=== PATIENT | female | born 1990 | race Caucasian/White ===

== ENCOUNTER 2021-08-10 12:26 | Emergency (ER) | payer SELFPAY ==
--- NOTE | ~2021-08-10 | US_ITS ---
EXAMINATION: LIMITED OB ULTRASOUND CLINICAL INFORMATION: 21 weeks . Abdominal pain. COMPARISON: None TECHNIQUE: Transabdominal limited second trimester OB ultrasound FINDINGS: There is a single viable intrauterine fetus. From today's measurements, gestational age is estimated at 21 weeks 2 days with estimated date of delivery of 12/19/2021. This agrees with dates from outside exam. measurements are concordant. BPD measures 4.9 cm suggesting gestational age 21 weeks 0 days. OFD measures 7.1 cm suggesting gestational age 22 weeks 6 days. Head circumference measures 19.4 cm suggesting gestational age 21 weeks 5 days. Abdominal circumference measures 15.9 cm suggesting gestational age 21 weeks 1 day. Femur length measures 3.5 cm suggesting gestational age 21 weeks 1 day. weight is estimated at 14 ounces or 3 9 9 g which is 28th percentile for patient's gestational age based on prior outside ultrasound. heart rate is 149 bpm. There is an anterior fundal placenta. There is a 7.3 x 1.4 x 4 cm hypoechoic area in the placenta near the umbilical cord insertion. This probably represents a venous vigil. It is difficult to clearly exclude placental hematoma. The placenta is otherwise normal appearing. There is a complex cystic area seen in the umbilical cord near the placental cord insertion. This measures 5.4 x 3.6 x 4.8 cm. Umbilical cord cysts can be associated with anomalies and dedicated level 2 survey is recommended. The cervical length measures 3.1 cm. The 2.3 x 3.5 x 1.4 cm. There is a 1.8 x 1.1 x 1.3 cm right ovarian cyst. The left ovary is normal-appearing and measures 2.8 x 1.6 x 2.2 cm. There is no fluid in the maternal pelvis. US/US OB limited IMPRESSION: Single viable intrauterine fetus. From today's measurements, weight is estimated at 14 ounces which is 28th percentile for patient's gestational age based on outside exam. 5.4 x 3.6 x 4.8 cm complex cyst in the umbilical cord near the umbilical cord insertion. Umbilical cysts can be associated with anomalies and dedicated level 2 survey is recommended. 7.3 x 1.4 x 4 cm hypoechoic area in the placenta near the umbilical cord insertion. This probably represents a venous vigil. It is difficult to exclude a placental hematoma with certainty and attention on follow-up exam recommended.
[2021-08-10 12:42] VITALS: BP 92/56; PULSE 83; RESP 17; TEMP 36.9; O2SAT 99; BMI 24.1
--- NOTE | 2021-08-10 13:25 | PC.NURSE ---
Pt states that she is 21 weeks with partially detached placenta. [place] felt that she was experiencing high levels of stress and had not felt the baby moving for a few weeks. She states that she did however feel the baby move yesterday but not today. She also mentions that she feels that her belly has stopped growing. She is not having any pain or vaginal bleeding at this time. She believes that she is rH negative.
--- NOTE | 2021-08-10 13:42 | ED.GENADULT ---
HPI - General Adult General Chief complaint: General Medical Stated complaint: ultra sound needed Time Seen by Provider: 08/10/21 13:06 Source: patient Mode of arrival: ambulatory Limitations: no limitations History of Present Illness HPI narrative: Patient presents ED for ultrasound. Patient is from [place]. States in [place] she had ultrasound and this showed that her placenta was detached from the fetus. Patient has not felt strong movement from the fetus recently. Patient denies any vaginal bleeding. Patient denies any abdominal pain. Related Data Allergies Allergy/AdvReac Type Severity Reaction Status Date / Time No Known Allergies Allergy Verified 08/10/21 12:41 Review of Systems Review of Systems: Yes all other systems are reviewed and are negative Constitutional: Constitutional: Reports as per HPI and Reports no additional constitutional complaints Eyes: Eyes: Reports as per HPI and Reports no additional eye complaints ENT: Reports system reviewed and no additional complaints, except as documented and Reports as per HPI Cardiovascular: Cardiovascular: Reports as per HPI and Reports no additional cardiovascular complaints Respiratory: Respiratory: Reports as per HPI and Reports no additional respiratory complaints Gastrointestinal: Gastrointestinal: Reports as per HPI, Reports no additional gastrointestinal complaints and Reports GI cramping Genitourinary: Genitourinary: Reports no additional female genitourinary complaints and Reports as per HPI Musculoskeletal: Musculoskeletal: Reports no additional musculoskeletal complaints and Reports as per HPI Neurologic: Reports system reviewed and no additional complaints, except as documented and Reports as per HPI Psychiatric: Psychiatric: Reports no additional psychiatric complaints and Reports as per HPI [facility] Past Medical History Medical History (Updated 08/10/21 @ 16:52 by DEQUAN Jerry) Hypotension Physical Exam Vital Signs: Vital Signs: Last Vital Signs Temp 98.7 F 08/10/21 14:17 Pulse 81 08/10/21 16:21 Resp 16 08/10/21 16:21 BP 93/54 L 08/10/21 16:21 Pulse Ox 100 08/10/21 14:17 Body Mass Index 24.1 Const: General: cooperative, healthy appearing, comfortable, no acute distress, well developed, alert, awake and Physically active Orientation/consciousness: patient oriented x3 HENMT: Head: Yes normal to inspection, Yes No palpable skull fracture present, Yes normocephalic, Yes atraumatic and No abrasion Eyes: General: appearance normal, both eyes and all related structures Neck: Neck: Yes normal visual inspection, Yes full ROM, Yes no lymphadenopathy, Yes no meningeal signs, Yes trachea midline, Yes supple and No tender Chest: Chest palpation & inspection: normal inspection of the chest and normal palpation of entire chest wall Resp: Effort & Inspection: normal respiratory effort and able to speak in complete sentences Auscultation: clear to auscultation bilaterally Cardio: Jugular venous distension: no JVD Heart sounds: S1 normal heart sound present and S2 normal heart sound present GI: Other: Patient refused pelvic exam. Inspection: Yes normal to inspection and No abdominal wall ecchymosis Palpation (GI): Soft to palpation, not firm, nontender, no guarding and not rigid : General: No CVA tenderness and Yes no CVA tenderness Back/Spine/Pelvis: Back: no CVA tenderness, No CVA tenderness and No back tenderness Skin: General skin exam: no rashes or lesions noted and elasticity normal Neuro: General: patient oriented x3, gait normal, no meningeal signs and CN's II-XI intact bilaterally Cranial nerves: Yes CN's II-XII intact bilaterally Extrem: General: Yes normal to inspection and Yes full ROM Psych: Appearance: grossly normal, well kempt and not disheveled Course Course Course Narrative: Patient will have labs drawn and sent for ultrasound. Reevaluation(s) Reevaluation #1: Patient presently not in any distress. Patient no longer wants to wait in the ER on like to be discharged. Waiting to hear from Dr. Michael hoyosBarbara Gainesyumiko and her friend preferred to be called with Dr. Michael Rivera on their cell phone Time: 16:48 Reevaluation #2: I spoke with Dr. Michael Melendez full states patient should go to [facility] limitedly be triaged for further evaluation and monitoring. I went to bedside and informed patient and her freidn before they recieved discarhged paper of this recommendation. Patient's friend states she she knows of [facility] labor triage and will bring patient immediately. they will drive immediately to [facility] after leaving this ER to [facility] W2 to [facility] labor and delivery triage. They were given copy of blood work and ultrasound. Patient and friend was given copy of blood work and images to give to [facility]. Patient Rh type negative and is aware of that and cynthia 2 babies. Patient believed to received rhogham in [place]. Time: 17:13 Medical Decision Making Lab Data Result diagrams: 08/10/21 14:17 08/10/21 14:17 Labs: Lab Results 08/10/21 08/10/21 08/10/21 Range/Units 14:17 14:17 14:17 WBC 8.7 (4.8-10.8) X10*3/uL RBC 3.27 L (4.20-5.50) X10*6/uL Hgb 10.5 L (12.0-16.0) g/dl Hct 30.0 L (37-47) % MCV 91.7 (80-98) fL MCH 32.1 (27.0-33.0) pg MCHC 35.0 (31.0-35.0) g/dl RDW 13.2 (11.0-16.0) % Plt Count 234 (160-400) X10*3/uL MPV 10.3 (9.4-12.3) fL Immature Gran % (Auto) 0.6 H (0.0-0.4) % Neut % (Auto) 63.3 (45-73) % Lymph % (Auto) 24.5 (20-40) % [place] % (Auto) 7.3 (2-11) % Eos % (Auto) 3.8 (0-4) % Baso % (Auto) 0.5 (0-2) % Lymph # (Auto) 2.1 (1.2-4.9) X10*3/uL [place] # (Auto) 0.6 (0.1-1.2) X10*3/uL Eos # (Auto) 0.3 (0.0-0.4) X10*3/uL Baso # (Auto) 0.0 (0.0-0.2) X10*3/uL Abs Immat Gran (auto) 0.05 H (0.00-0.03) X10*3/uL Absolute Neuts (auto) 5.5 (2.0-8.3) X10*3/uL Absolute Nucleated RBC 0.000 (0.0-0.012) X10*3/uL Nucleated RBC % (auto) 0.0 (0.0-0.2) /100WBC PT 10.2 (9.9-13.0) SEC INR 0.9 (0.9-1.1) APTT 24.1 (24.1-38.0) SEC Sodium 137 (135-145) mmol/L Potassium 4.2 (3.3-5.1) mmol/L Chloride 106 (96-108) mmol/L Carbon Dioxide 25 (22-29) mmol/L Anion Gap 10 L (12-20) BUN 6 L (9-16) mg/dL Creatinine 0.55 (0.5-1.4) mg/dL Estim Creat Clear Calc 127.4 Estimated GFR > 60 Random Glucose 82 (60-115) mg/dL Calcium 8.6 (8.4-10.2) mg/dL Total Bilirubin 0.4 (0.0-1.0) mg/dL Direct Bilirubin (0.0-0.5) mg/dL AST 17 (5-31) U/L ALT 14 (0-31) U/L Alkaline Phosphatase 52 (39-117) U/L Total Protein 6.7 (6.5-8.0) g/dL Albumin 3.7 (3.5-5.0) g/dL Beta HCG, Quant 41522 mIU/mL Urine Color Urine Appearance Urine pH (5.0-8.0) Ur Specific [place] (1.005-1.025) Urine Protein (NEG-TRACE) MG/DL Urine Glucose (UA) (NEG) MG/DL Urine Ketones (NEG) MG/DL Urine Blood (NEG) Urine Nitrite (NEG) Ur Leukocyte Esterase (NEG) Urine Test (NEGATIVE) Blood Type 08/10/21 08/10/21 08/10/21 Range/Units 14:17 14:17 15:11 WBC (4.8-10.8) X10*3/uL RBC (4.20-5.50) X10*6/uL Hgb (12.0-16.0) g/dl Hct (37-47) % MCV (80-98) fL MCH (27.0-33.0) pg MCHC (31.0-35.0) g/dl RDW (11.0-16.0) % Plt Count (160-400) X10*3/uL MPV (9.4-12.3) fL Immature Gran % (Auto) (0.0-0.4) % Neut % (Auto) (45-73) % Lymph % (Auto) (20-40) % [place] % (Auto) (2-11) % Eos % (Auto) (0-4) % Baso % (Auto) (0-2) % Lymph # (Auto) (1.2-4.9) X10*3/uL [place] # (Auto) (0.1-1.2) X10*3/uL Eos # (Auto) (0.0-0.4) X10*3/uL Baso # (Auto) (0.0-0.2) X10*3/uL Abs Immat Gran (auto) (0.00-0.03) X10*3/uL Absolute Neuts (auto) (2.0-8.3) X10*3/uL Absolute Nucleated RBC (0.0-0.012) X10*3/uL Nucleated RBC % (auto) (0.0-0.2) /100WBC PT (9.9-13.0) SEC INR (0.9-1.1) APTT (24.1-38.0) SEC Sodium (135-145) mmol/L Potassium (3.3-5.1) mmol/L Chloride (96-108) mmol/L Carbon Dioxide (22-29) mmol/L Anion Gap (12-20) BUN (9-16) mg/dL Creatinine (0.5-1.4) mg/dL Estim Creat Clear Calc Estimated GFR Random Glucose (60-115) mg/dL Calcium (8.4-10.2) mg/dL Total Bilirubin 0.4 (0.0-1.0) mg/dL Direct Bilirubin < 0.2 (0.0-0.5) mg/dL AST 18 (5-31) U/L ALT 12 (0-31) U/L Alkaline Phosphatase 52 (39-117) U/L Total Protein 6.6 (6.5-8.0) g/dL Albumin 3.7 (3.5-5.0) g/dL Beta HCG, Quant mIU/mL Urine Color YELLOW Urine Appearance CLOUDY Urine pH 6.5 (5.0-8.0) Ur Specific [place] 1.015 (1.005-1.025) Urine Protein NEG (NEG-TRACE) MG/DL Urine Glucose (UA) NEG (NEG) MG/DL Urine Ketones NEG (NEG) MG/DL Urine Blood NEG (NEG) Urine Nitrite NEG (NEG) Ur Leukocyte Esterase NEG (NEG) Urine Test (NEGATIVE) Blood Type O Negative 08/10/21 Range/Units 15:11 WBC (4.8-10.8) X10*3/uL RBC (4.20-5.50) X10*6/uL Hgb (12.0-16.0) g/dl Hct (37-47) % MCV (80-98) fL MCH (27.0-33.0) pg MCHC (31.0-35.0) g/dl RDW (11.0-16.0) % Plt Count (160-400) X10*3/uL MPV (9.4-12.3) fL Immature Gran % (Auto) (0.0-0.4) % Neut % (Auto) (45-73) % Lymph % (Auto) (20-40) % [place] % (Auto) (2-11) % Eos % (Auto) (0-4) % Baso % (Auto) (0-2) % Lymph # (Auto) (1.2-4.9) X10*3/uL [place] # (Auto) (0.1-1.2) X10*3/uL Eos # (Auto) (0.0-0.4) X10*3/uL Baso # (Auto) (0.0-0.2) X10*3/uL Abs Immat Gran (auto) (0.00-0.03) X10*3/uL Absolute Neuts (auto) (2.0-8.3) X10*3/uL Absolute Nucleated RBC (0.0-0.012) X10*3/uL Nucleated RBC % (auto) (0.0-0.2) /100WBC PT (9.9-13.0) SEC INR (0.9-1.1) APTT (24.1-38.0) SEC Sodium (135-145) mmol/L Potassium (3.3-5.1) mmol/L Chloride (96-108) mmol/L Carbon Dioxide (22-29) mmol/L Anion Gap (12-20) BUN (9-16) mg/dL Creatinine (0.5-1.4) mg/dL Estim Creat Clear Calc Estimated GFR Random Glucose (60-115) mg/dL Calcium (8.4-10.2) mg/dL Total Bilirubin (0.0-1.0) mg/dL Direct Bilirubin (0.0-0.5) mg/dL AST (5-31) U/L ALT (0-31) U/L Alkaline Phosphatase (39-117) U/L Total Protein (6.5-8.0) g/dL Albumin (3.5-5.0) g/dL Beta HCG, Quant mIU/mL Urine Color Urine Appearance Urine pH (5.0-8.0) Ur Specific [place] (1.005-1.025) Urine Protein (NEG-TRACE) MG/DL Urine Glucose (UA) (NEG) MG/DL Urine Ketones (NEG) MG/DL Urine Blood (NEG) Urine Nitrite (NEG) Ur Leukocyte Esterase (NEG) Urine Test POSITIVE H (NEGATIVE) Blood Type Discharge Plan Discharge Clinical Impression: Patient Disposition: Home, Self-Care Instructions: at 19 to 22 Weeks (ED) Additional Instructions: Return to the ED for any abdominal pain, nausea, vomiting, vaginal bleeding, inability to feel baby move, flank pain, fever, chills, or any other concerning symptoms. Referrals: Kuldip Rodriguez MD [Physician] - 2 days (Placenta hematoma. 21 weeks . ) Interventions: ED Discharge Assessment Last Done: 08/10/21 17:05 Discharge Date/Time: 08/10/21 17:07 Print Language: Frisian
[2021-08-10 14:17] VITALS: BP 86/46; PULSE 69; RESP 14; TEMP 37.1; O2SAT 100
[2021-08-10 14:25] LABS: MANUAL DIFF FLAG NO
[2021-08-10 14:29] LABS: Basophils Percent Auto 0.5 % (0-2); Eosinophils Absolute Auto 0.3 X10*3/uL (0.0-0.4); Eosinophils Percent Auto 3.8 % (0-4); Hemoglobin 10.5 g/dl (12.0-16.0); Imm Gran Abs Auto 0.05 X10*3/uL (0.00-0.03); Imm Gran Pct Auto 0.6 % (0.0-0.4); Lymphocytes Absolute Auto 2.1 X10*3/uL (1.2-4.9); Lymphocytes Percent Auto 24.5 % (20-40); Mean Corpuscular Hemoglobin 32.1 pg (27.0-33.0); Mean Corpuscular Volume 91.7 fL (80-98); Mean Platelet Volume 10.3 fL (9.4-12.3); Monocytes Absolute Auto 0.6 X10*3/uL (0.1-1.2); Monocytes Percent Auto 7.3 % (2-11); Neutrophils Absolute Auto 5.5 X10*3/uL (2.0-8.3); Neutrophils Percent Auto 63.3 % (45-73); Platelet Count 234 X10*3/uL (160-400); Red Blood Count 3.27 X10*6/uL (4.20-5.50); Red Cell Distribution Width 13.2 % (11.0-16.0); White Blood Count 8.7 X10*3/uL (4.8-10.8)
[2021-08-10 14:31] VITALS: BP 96/49; RESP 16
[2021-08-10 14:35] LABS: INTERNATIONAL NORM RATIO 0.9 (0.9-1.1); Prothrombin Time 10.2 SEC (9.9-13.0)
[2021-08-10 14:38] LABS: Partial Thromboplastin Time 24.1 SEC (24.1-38.0)
[2021-08-10 14:48] LABS: Alanine Aminotransferase 14 U/L (0-31); Albumin Level 3.7 g/dL (3.5-5.0); Alkaline Phosphatase 52 U/L (39-117); Anion Gap 10 (12-20); Aspartate Amino Transferase 17 U/L (5-31); Bilirubin Total 0.4 mg/dL (0.0-1.0); Blood Urea Nitrogen 6 mg/dL (9-16); Calcium 8.6 mg/dL (8.4-10.2); Carbon Dioxide 25 mmol/L (22-29); Chloride 106 mmol/L (96-108); Creatinine Clr Calc Pharmacy 127.4; Estimated Glomerular Filt Rate > 60; Glucose Random 82 mg/dL (60-115); Potassium 4.2 mmol/L (3.3-5.1); Sodium 137 mmol/L (135-145); Total Protein 6.7 g/dL (6.5-8.0)
[2021-08-10 14:50] LABS: Alanine Aminotransferase 12 U/L (0-31); Albumin Level 3.7 g/dL (3.5-5.0); Alkaline Phosphatase 52 U/L (39-117); Aspartate Amino Transferase 18 U/L (5-31); Bilirubin Direct < 0.2 mg/dL (0.0-0.5); Bilirubin Total 0.4 mg/dL (0.0-1.0); Total Protein 6.6 g/dL (6.5-8.0)
[2021-08-10 15:20] LABS: Appearance Urine CLOUDY; Color Urine YELLOW; Glucose Urine UA NEG (NEG); Leukocyte Esterase Urine NEG (NEG); Nitrite Urine NEG (NEG); PH 6.5 (5.0-8.0); Specific Gravity - Urine 1.015 (1.005-1.025); Urine Blood NEG (NEG); Urine Ketones NEG (NEG); Urine Protein NEG (NEG-TRACE)
[2021-08-10 15:22] LABS: UPreg QC Valid YES; Urine Pregnancy POSITIVE (NEGATIVE)
[2021-08-10 15:25] LABS: HCG Quantitative 36442 mIU/mL
--- NOTE | 2021-08-10 16:20 | PC.NURSE ---
Pt resting comfortably. No complaints at this time. FHR 153. DEQUAN sánchez at bedside.
[2021-08-10 16:21] VITALS: BP 93/54; PULSE 81; RESP 16
--- NOTE | 2021-08-10 16:55 | P.CONOB_ITS ---
OB Consult Note - [facility] Data Service Date: 08/10/21 Primary Care Provider: None Physician Narrative I was contacted at 16:46 regarding Savannah Zamora who is a 30 year old female who presented the emergency room requesting an ultrasound because of an abnormal ultrasound she had done in [place]. No abdominal pain or vaginal bleeding. No h istory of trauma. Ultrasound showed the following: Single viable intrauterine fetus. From today's measurements, weight is estimated at 14 ounces which is 28th percentile for patient's gestational age based on outside exam. 5.4 x 3.6 x 4.8 cm complex cystin the umbilical cord near the umbilical cord insertion. Umbilical cysts can be associated with anomalies and dedicated level 2 survey is recommended. 7.3 x 1.4 x 4 cm hypoechoic area in the placenta near the umbilical cord insertion. This probably represents a venous vigil. It is difficult to exclude a placental hematoma with certainty and attention on follow-up exam recommended. [employer]ER[employer]IST - Review of Systems Review of Systems ROS Unobtainable: All systems reviewed & are unremarkable except as noted in HPI and below OB PMFSH Past Medical History Medical History (Updated 08/10/21 @ 16:52 by DEQUAN Jerry) Hypotension Social History Social History Advance Directives: No Advance Directives Information Provided: Yes Patient : Yes Meds Allergies Allergy/AdvReac Type Severity Reaction Status Date / Time No Known Allergies Allergy Verified 08/10/21 12:41 OB Consult Results Labs CBC & Chem 7: 08/10/21 14:17 08/10/21 14:17 Labs: Short CBC 08/10/21 Range/Units 14:17 WBC 8.7 (4.8-10.8) X10*3/uL Hgb 10.5 L (12.0-16.0) g/dl Hct 30.0 L (37-47) % Plt Count 234 (160-400) X10*3/uL BMP 08/10/21 14:17 Sodium 137 Potassium 4.2 Chloride 106 Carbon Dioxide 25 BUN 6 L Creatinine 0.55 Calcium 8.6 Liver Function 08/10/21 08/10/21 Range/Units 14:17 14:17 Total Bilirubin 0.4 0.4 (0.0-1.0) mg/dL Direct Bilirubin < 0.2 (0.0-0.5) mg/dL AST 17 18 (5-31) U/L ALT 14 12 (0-31) U/L Alkaline Phosphatase 52 52 (39-117) U/L Albumin 3.7 3.7 (3.5-5.0) g/dL Urine 08/10/21 08/10/21 Range/Units 15:11 15:11 Urine Color YELLOW Urine Appearance CLOUDY Urine pH 6.5 (5.0-8.0) Ur Specific [place] 1.015 (1.005-1.025) Urine Protein NEG (NEG-TRACE) MG/DL Urine Glucose (UA) NEG (NEG) MG/DL Urine Test POSITIVE H (NEGATIVE) OB - CN: A/P Assessment and Plan (1) : Status: Acute Assessment and Plan: I Recommended to DEQUAN Acevedo from the emergency room for the patient to go to the triage area at the [facility] OB unit today to be evaluated since OB unit is not available at [facility], thereforethe there is no ability to evaluate OB patients at 20 weeks and above of gestation I was contacted by DEQUAN Acevedo from the emergency room, I did not see the patient nor did I examine her
== END 2021-08-10 17:07 | disposition home or self-care (01) ==
PROVIDERS: Physician Assistant; Emergency Provider Emergency Medicine
DX: O26.92 Pregnancy related conditions, unspecified, second trimester (principal); Z3A.19 19 weeks gestation of pregnancy
CPT/HCPCS: 36415; 76815; 80053; 80076; 81003; 81025; 84702; 85025; 85610; 85730; 86900; 86901; 99284